=== PATIENT | male | born 1960 | race Caucasian/White ===

== ENCOUNTER 2019-07-12 12:04 | Emergency (ER) | payer SELFPAY ==
[2019-07-12 13:01] VITALS: BP 118/74
--- NOTE | 2019-07-12 13:26 | UC ---
Knee Pain HPI - HPI Summary HPI Summary: 58-year-old male presents with one-week history of right knee pain. States he woke up one week ago noting some pain to the anterior right knee. Approximately 2-3 days later he started noticing some redness and swelling over the kneecap. No known injury. 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 Denies fever, chills, joint pain, decreased range of motion, numbness, or tingling. - History of Current Complaint Chief Complaint: UCLowerExtremity Stated Complaint: KNEE INJURY Time Seen by Provider: 07/12/19 13:10 Hx Obtained From: Patient Pain Intensity: 7 - Allergies/Home Medications Allergies/Adverse Reactions: Allergies Allergy/AdvReac Type Severity Reaction Status Date / Time No Known Allergies Allergy Verified 07/12/19 13:01 PMH/Surg Hx/FS Hx/Imm Hx Previously Healthy: Yes - Denies significant PMH - Surgical History Surgical History: Yes Surgery Procedure, Year, and Place: appendectomy - Family History Known Family History: Positive: Non-Contributory - Social History Occupation: Employed Full-time Lives: Alone Alcohol Use: None 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 Negative: Decreased ROM Neurological: Positive: Negative Is Patient Immunocompromised?: No Physical Exam - Summary Physical Exam Summary: GENERAL APPEARANCE: Well developed, well nourished, alert and cooperative, and appears to be in no acute distress. CARDIAC: Normal S1 and S2. No S3, S4 or murmurs. Rhythm is regular. There is no peripheral edema, cyanosis or pallor. Extremities are warm and well perfused. Capillary refill is less than 2 seconds. Peripheral pulses intact. LUNGS: Clear to auscultation without rales, rhonchi, wheezing or diminished breath sounds. ABDOMEN: Positive bowel sounds. Soft, nondistended, nontender. No guarding or rebound. No masses or hepatosplenomegally. MUSKULOSKELETAL: Normal muscular development. Limping gait. EXTREMITIES: Mild tenderness with erythema and moderate edema over the right knee cap. No lesions noted. No joint pain. Full ROM. Circulation and sensation intact. SKIN: Skin normal color, texture and turgor. Triage Information Reviewed: Yes Vital Signs: Initial Vital Signs Temp 99.3 F 07/12/19 12:57 Pulse 64 07/12/19 12:57 Resp 18 07/12/19 12:57 BP 118/74 07/12/19 12:57 Pulse Ox 97 07/12/19 12:57 Vital Signs Reviewed: Yes Diagnostics - Radiology No standard instances Radiology Interpretation Completed By: Radiologist Summary of Radiographic Findings: Order Information: KNEE RIGHT 4+ VWS. Indication: RIGHT knee pain since Friday with progressive worsening and swelling. Comparison: None. Technique: RIGHT knee: AP, tunnel, lateral, sunrise views. Report: #. Negative for fracture or articular malalignment. #. Small joint effusion. Severe anterior soft tissue swelling. #. 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 IMPRESSION: #. Correlate for potential prepatellar bursitis or cellulitis. Knee Pain Course/Dx - Course Course Of Treatment: 58-year-old male presents with one-week history of right knee pain. States he woke up one week ago noting some pain to the anterior right knee. Approximately 2-3 days later he started noticing some redness and swelling over the kneecap. No known injury. 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 Denies fever, chills, joint pain, decreased range of motion, numbness, or tingling. Afebrile. Vital signs stable. Patient had mild tenderness with erythema and moderate edema over the right knee cap. No lesions noted. No joint pain. Full ROM. Circulation and sensation intact. Remainder of exam unremarkable. X-ray was negative for fracture or articular malalignment, small joint effusion with severe anterior soft tissue swelling consistent with prepatellar burstitis, and very mild osteoarthritis at the medial joint compartment and patellofemoral joint. Findings reviewed with patient. Recommending conservative treatment for a right prepatellar bursitis. He was given a prescription for naproxen 500 mg 1 tablet every 12 hours for the next 5-7 days then every 12 hours as needed. He is to follow-up with orthopedic surgery in one week if no improvement in symptoms. Anticipatory guidance and warning symptoms reviewed with the patient. Verbalizes understanding and agrees with plan of care. - Differential Dx/Diagnosis Differential Diagnosis/HQI/PQRI: Internal Derangement Of Knee, Infection, Sprain Provider Diagnosis: Prepatellar bursitis of right knee Discharge ED - Sign-Out/Discharge Documenting (check all that apply): Patient Departure All imaging exams completed and their final reports reviewed: Yes - Discharge Plan Condition: Stable Disposition: HOME Prescriptions: Naproxen [Naproxen 500 mg tab] 500 mg PO Q12HR #30 tablet Patient Education Materials: Knee Bursitis (ED) Referrals: No Primary Care Phys,NOPCP [Primary Care Provider] - Aurelio Norris MD [Medical Doctor] - Additional Instructions: The x-ray performed in the clinic today showed no evidence of a fracture. You have a condition called prepatellar bursitis. Rest the knee as much as possible. Try to avoid putting any pressure on the knee while having pain and/or swelling. In the future you should wear knee pads when working on you knees to help prevent future occurrences. Apply ice to the affected area for 15-20 minutes at least 4 times a day to help with the pain and swelling. Elevate the leg to help reduce swelling. Take naproxen 500 mg 1 tablet every 12 hours with food for the next 5-7 days then may take every 12 hours as needed for pain. Follow up with orthopedic surgery in 5-7 days if symptoms do not improve. Seek immediate medical attention if you have severe pain not managed with pain medication, you are unable to walk or bear any weight, develop numbness or tingling in the leg, foot, or toes, or have any worsening of symptoms. - Billing Disposition and Condition Condition: STABLE Disposition: Home - Attestation Statements Provider Attestation: I was available for consult. This patient was seen by the CAMILO. The patient was not presented to, seen by, or examined by me. -Jairo
== END 2019-07-12 14:12 | disposition home or self-care (01) ==
LOC: UCEAST 12:04
DX: M70.41 Prepatellar bursitis, right knee (principal); Z87.891 Personal history of nicotine dependence
CPT/HCPCS: 99202; G0463

== ENCOUNTER 2019-07-28 10:28 | Inpatient (IN) | payer MEDICAID ==
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
[2019-07-28] MEDS ORDERED: NS 0.9% 1000 ML** 1,000 ML IV ONE (10:39)
[2019-07-28] MEDS ORDERED: Piperacillin/Tazobac ADVAN(*) 3.375 GM in NS 0.9% 100 ML* 100 ML IVPB ONE (10:41)
[2019-07-28 11:02] LABS: ABS Basophils 0.1 10^3/ul (0-0.2); ABS Eosinophils 0.1 10^3/ul (0-0.6); ABS Lymphocytes 1.2 10^3/ul (1.0-4.8); ABS Monocytes 0.9 10^3/ul (0-0.8); ABS Neutrophils 5.6 10^3/ul (1.5-7.7); Eosinophil % 1.8 %; Hematocrit 41 % (42-52); Hemoglobin 14.3 g/dL (14.0-18.0); Lymphocyte % 15.4 %; Mean Corpuscular HGB Conc 35 g/dL (31-36); Mean Corpuscular Hemoglobin 32 pg (27-31); Mean Corpuscular Volume 94 fL (80-94); Mean Platelet Volume 6.9 fL (7.4-10.4); Platelet Count 549 10^3/uL (150-450); Red Blood Count 4.42 10^6 /uL (4.18-5.48); Red Cell Distribution Width 14 % (10-15)
[2019-07-28] MEDS ORDERED: Lidocaine 1% MPF ** 5 ML VIAL ONE (11:03)
[2019-07-28] MEDS ORDERED: Ondansetron INJ* 2 MG/ML VIAL ONE (11:09)
[2019-07-28] MEDS ORDERED: Morphine 4 MG/ML VIAL (1 ml) 4 MG/ML VIAL ONE (11:09)
[2019-07-28] MEDS ORDERED: Ondansetron INJ* 2 MG/ML VIAL IV ONE (11:11)
[2019-07-28] MEDS ORDERED: Morphine 4 MG/ML VIAL (1 ml) 4 MG/ML VIAL IV ONE (11:11)
[2019-07-28 11:35] LABS: C Reactive Protein 122.39 mg/L (<8.01); Uric Acid 3.4 mg/dL (4.4-7.6)
[2019-07-28 12:23] LABS: Erythrocyte Sed Rate 77 mm/Hr (0-19)
[2019-07-28 12:27] LABS: Albumin/Globulin Ratio 1.3 (1-3); BUN/Creatinine Ratio 25.4 (8-20); Calcium 8.9 mg/dL (8.6-10.3); EGFR African American 138.9 (>60); EGFR Non-African American 114.8 (>60); Globulin 3.1 g/dL (2-4); Potassium 4.4 mmol/L (3.5-5.0); Total Bilirubin 0.9 mg/dL (0.2-1.0); Total Protein 7.1 g/dL (6.4-8.9)
[2019-07-28] MEDS ORDERED: Vancomycin(*) 1,000 MG in NS 0.9% 250 ML* 250 ML IVPB ONE (12:45)
[2019-07-28] MEDS ORDERED: Vancomycin per Pharmacy* NOTE FOLLOW UP SCH (15:00)
--- NOTE | 2019-07-28 19:16 | CONS ---
CONSULTATION REPORT: DATE OF CONSULT: 07/28/19 LOCATION: Bed 422 at [facility]. 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 He has had increasing pain at the anterior aspect of his right knee for the last 3 weeks and was seen at [facility] 10 days ago for some swelling in the anterior right knee and was given a course of antibiotics. He feels that that has not helped and he came to the emergency room today with increasing redness, swelling /puffiness at the anterior aspect of his right knee. He had the knee bursa lanced by the emergency room doctor with copious amount of purulent material obtained. With erythema and apparently septic prepatellar bursa, he was admitted to the medical service with orthopedic consultation. Jaguar is 58 years of age. He is an ex-smoker. He claims to be in pretty good health with no history of diabetes. He has had no recent fevers, but has had had some chill feelings. No significant chest pain or difficulty breathing. No particular GI disturbance. No dizziness or lightheadedness. No depression or anxiety. PHYSICAL EXAM: His examination shows him to be a healthy-appearing male who is alert, oriented, and in no acute distress. He is a good historian as far as the right knee problem. The right knee itself is red and swollen in the prepatellar area. He has circumferential redness at the patella, but not around the side and back of the knee and he is able to flex and extend the knee well, particularly since the bursa has been lanced. There is a 3 cm jagged wound at the inferior portion of the patellar bursa and some scant purulent drainage there. He has a warm sensate foot with intact pulses and good range of motion. IMPRESSION: The patient with septic prepatellar bursitis related to his work on the knee. Typically, there is a small foreign body or just recurrent trauma to the bursa precipitating this type of problem. PLAN: Plan for him would be admission to the medical service with orthopedic consultation. He will be n.p.o. after midnight and plan for tomorrow is a formal washout and debridement of the prepatellar bursa of right leg. [id number]/[facility] #: [id number] [facility] HOSPITALGerardo
[2019-07-28] MEDS: Vancomycin(*) 1,250 MG in NS 0.9% 250 ML* 250 ML IVPB SCH (20:53)
--- NOTE | 2019-07-28 22:57 | HP ---
HISTORY AND PHYSICAL: DATE OF ADMISSION: 07/28/19 PROVIDER: Grabiel Martino NP PRIMARY CARE PROVIDER: None. ATTENDING PHYSICIAN WHILE IN THE HOSPITAL: Dr. Breann Correa * (dictated by Grabiel Martino NP). CHIEF COMPLAINT: Right knee pain. HISTORY OF PRESENT ILLNESS: Mr. Ahumada is a 58-year-old male with no significant past medical history, who presented to the emergency room with complaints of right knee swelling and redness, very painful x3 weeks. The patient reports that he woke up on 07/05/19 with soreness in his right knee. He reports that it continued to bother him and then on 07/12, he was seen at [facility], an acute care hospital, at that time he had x- rays and was diagnosed with bursitis of the right knee. He was prescribed naproxen for the knee pain. He reports he took naproxen for approximately 15 days with no improvement. He reports that over the past 10 days he has had an increased redness, swelling, and increased pain in the right knee. Due to this, the patient presented to the emergency room. He does report that he noticed some drainage coming from the right knee that started last night. He does report that was very painful to walk on his knee, bend his knee or move his leg. Due to these symptoms, the patient presented to the emergency room for further evaluation. While in the emergency room, the patient had routine lab work drawn. He found to have an ESR of 77 and CRP of 122.39. The patient did have incision and drainage of the knee in the emergency room, a culture was sent which was negative for MRSA, but positive for MSSA. Due to the pain and swelling in his right knee, Hospital Medicine was asked to see and evaluate for admission. PAST MEDICAL HISTORY: None. PAST SURGICAL HISTORY: Appendectomy. HOME MEDICATIONS: None. ALLERGIES: None. FAMILY HISTORY: No reported history of coronary artery disease, diabetes. Mother with breast cancer. SOCIAL HISTORY: The patient reports he quit smoking approximately 20 years ago. Denies any alcohol or illicit drug use. 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 He is . Surrogate decision maker is none. He is a full code. REVIEW OF SYSTEMS: He denies fever, chills, unintended weight loss. Denies any chest pain, edema, hemoptysis. Denies any shortness of breath. Denies any nausea, vomiting, diarrhea, abdominal pain, hematuria, dysuria, focal weakness, sensory loss. Denies any dysphagia. He does complain of pain to the right knee with redness, swelling, and small amount of bloody drainage. Denies any psychosis or anxiety. PHYSICAL EXAMINATION GENERAL: At this time, Mr. Ahumada is alert and oriented, resting on the stretcher in the emergency room. He is in no acute distress. VITAL SIGNS: Blood pressure 125/70, heart rate 68, respirations are 18, O2 saturations 97%, temperature was 98.1. HEENT: Head is atraumatic, normocephalic. Eyes: EOMs are intact. Sclerae anicteric and not pale. Oral mucosa appears to be moist. NECK: Supple. LUNGS: Clear to auscultation bilaterally. No wheezes, rales, or rhonchi. CARDIAC: S1, S2. Regular rate and rhythm. No murmurs, rubs or gallops. ABDOMEN: Soft and nontender. Bowel sounds are present x4. EXTREMITIES: He does have redness and swelling noted to his right knee with bloody drainage. The knee is warm to touch with surrounding erythema, noted with erythema streaking up his right thigh and erythema noted to his right lower leg. Pedal pulses are +2 bilaterally. SKIN: He does have drainage noted from the right knee with moderate amount of swelling and severe pain to touch with surrounding erythema. NEUROLOGIC: He is awake, alert, and oriented x3. His speech is clear. Thought process is intact. There are no gross focal deficits. DIAGNOSTIC STUDIES/LAB DATA: WBCs were 8.0, RBCs 4.42, hemoglobin 14.3, hematocrit 41, platelet count 549. ESR is 77. Sodium 137, potassium 4.4, chloride 100, carbon dioxide was 32, anion gap 5, BUN 18, creatinine 0.71, glucose was 108, lactic acid 0.7, uric acid 3.4, calcium 8.9. ASTs were 10, ALTs were 13, alkaline phosphatase 75. C-reactive protein was 122.39. He had a venous Doppler, no evidence of deep vein thrombosis. Blood cultures are currently pending. Wound culture sensitivity is pending as well. ASSESSMENT AND PLAN: Mr. Ahumada is a 58-year-old male with no significant past medical history, who presented to the emergency room with complaints of right knee pain, swelling, and redness. He will be admitted for: 1. Cellulitis, possible infected bursitis of the right knee. I will consult Orthopedics, Dr. Mendosa, who will see the patient in consultation. He will be made n.p.o. after midnight as he would likely need to go to the OR for washout. I will continue him on vancomycin, I will start him on normal saline at 75 cc an hour after midnight. Further management of the right knee per Orthopedics recommendations. 2. FEN: He will be n.p.o. after midnight. Prior to the night, he can have regular diet. 3. Code status is full code. 4. DVT prophylaxis: I will place him on SCDs for now as the patient will have pending surgery tomorrow. 5. Disposition: He will be placed inpatient on the medical floor. TIME SPENT: Time spent on this admission was 60 minutes, greater than half that time was spent at the bedside reviewing events leading thus far to his hospitalization, performing physical exam, and reviewing my plan of care. I have discussed this with my attending, Dr. Breann Correa; she is in agreement with my plan. GRABIEL MARTINO, LITERACY CONSULTANT [id number]/[facility] #: [id number] STACY
[2019-07-29] MEDS: NS 0.9% 1000 ML** 1,000 ML IV SCH ×2 (04:49→22:37)
[2019-07-29] MEDS: Vancomycin(*) 1,250 MG in NS 0.9% 250 ML* 250 ML IVPB SCH (04:49)
[2019-07-29 06:28] LABS: ABS Eosinophils 0.3 10^3/ul (0-0.6); ABS Lymphocytes 1.5 10^3/ul (1.0-4.8); ABS Monocytes 0.7 10^3/ul (0-0.8); ABS Neutrophils 2.8 10^3/ul (1.5-7.7); Eosinophil % 5.5 %; Hematocrit 37 % (42-52); Hemoglobin 12.7 g/dL (14.0-18.0); Lymphocyte % 27.5 %; Mean Corpuscular HGB Conc 34 g/dL (31-36); Mean Corpuscular Hemoglobin 32 pg (27-31); Mean Corpuscular Volume 94 fL (80-94); Mean Platelet Volume 7.2 fL (7.4-10.4); Platelet Count 477 10^3/uL (150-450); Red Blood Count 3.91 10^6 /uL (4.18-5.48); Red Cell Distribution Width 14 % (10-15); White Blood Count 5.3 10^3/uL (3.5-10.8)
[2019-07-29 06:43] LABS: Calcium 8.1 mg/dL (8.6-10.3); Potassium 3.6 mmol/L (3.5-5.0)
[2019-07-29 06:48] LABS: BUN/Creatinine Ratio 25.8 (8-20); EGFR African American 151.1 (>60); EGFR Non-African American 124.9 (>60)
--- NOTE | 2019-07-29 08:05 | PN ---
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 I&D done on ED showed purulent drainage; MSSA positive. On cefazolin(day 2);was on vanco before; wash out today No acute overnight events VS stable He doesnot have any pain. No fever. He is concerned about his wound on right knee Last BM yesterday Objective Active Medications: Acetaminophen (Tylenol Tab*) 650 mg PO Q4H PRN PRN Reason: MILD PAIN or TEMP > 100.4 Vancomycin HCl 1,250 mg/ (Sodium Chloride) 250 mls @ 166.667 mls/hr IVPB Q8H [facility] Last Admin: 07/29/19 04:49 Dose: 166.667 mls/hr Sodium Chloride (Ns 0.9% 1000 Ml) 1,000 mls @ 75 mls/hr IV PER RATE [facility] Last Admin: 07/29/19 04:49 Dose: 75 mls/hr Pharmacy Consult (Vancomycin Per Pharmacy*) 1 note FOLLOW UP .VANC PER PHARMACY ELADIO; Protocol Pharmacy Profile Note (Vancomycin Trough Check) 1 note FOLLOW UP 1230 ONE Stop: 07/29/19 12:31 Vital Signs - 8 hr 07/29/19 07/29/19 03:15 07:15 Temperature 97.6 F 97.6 F Pulse Rate 81 69 Respiratory 18 18 Rate Blood Pressure 121/69 114/67 (mmHg) O2 Sat by Pulse 98 96 Oximetry Oxygen Devices in Use Now: None Exam: Patient is lying on a bed with no acute distress. HEENT: Normocephalic and atraumati Lungs: Clear with no added sounds Heart: S1/S2 heard with no added murmur ABdomen: soft, nondistended and nontender. Normal BS heard Extremitites: Dressing on right knee; soaked with blood. Surrounding area red and indurated. Mild tenderness present. PUs seen on right knee with no active drainage. Distal pulse intact. 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 I&D done on ED showed purulent drainage; MSSA positive. Found to have Septic prepatellar bursitis. On cefazolin(day 2); wash out today - Patient Problems (1) Septic prepatellar bursitis of right knee Current Visit: Yes Status: Acute Code(s): M71.161 - OTHER INFECTIVE BURSITIS , RIGHT KNEE SNOMED Code(s): 34780197 Comment: S/P I and D in ED wound growing MSSA. 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 Was on vancomycin before; no changed to cefazoli(day 2) On iv fluids Plan is to wash out today; ortho following (2) DVT prophylaxis Current Visit: Yes Status: Acute Code(s): Z29.9 - ENCOUNTER FOR PROPHYLACTIC MEASURES, UNSPECIFIED SNOMED Code(s): 775247746 Comment: On SCD (3) Full code status Current Visit: Yes Status: Acute Code(s): Z78.9 - OTHER SPECIFIED HEALTH STATUS SNOMED Code(s): 366735515 Status and Disposition: Medicine inpatient; ortho following No PCP Doesnot have insurance. Lives alone Attending: Beba Castaneda Attestation Documenting Resident: Lauri Stewart Supervising Physician: Beba Castaneda Attending/Supervising Physician Comment: Agree w resident note. Attending addendum 58M no sig PMH presents with subacute prepatellar bursitis, now c/b infection s/ p ID on 07/28, needing washout. #R knee: MSSA on micro, switch to cefazolin, after washout work with PT and choose likely keflex #Mildly elevated glu: Check A1C given no PC #DVT: SCDs, start SQH after #Code Full #Dispo: Possibly home 07/30 if can ambulate, will need work note and primary care Attestation: This service has been performed in part by a resident under the direction of a teaching physician.I, Beba Castaneda, performed the service, or was physically present during the critical, or mosher portions of the service, furnished by the resident. I participated in the management of the patient.
[2019-07-29] MEDS: ceFAZolin 1 GM ADVAN(*) 1 GM in NS 0.9% 50 ML* 50 ML IVPB SCH ×2 (11:57→18:54)
[2019-07-29 12:28] LABS: Urine Appearance Cloudy; Urine Bilirubin Negative (Negative); Urine Blood Negative (Negative); Urine Color Yellow; Urine Glucose Negative (Negative); Urine Ketones Negative (Negative); Urine Nitrite Negative (Negative); Urine Protein Negative (Negative); Urine Specific Gravity 1.023 (1.010-1.030); Urine Urobilinogen Positive (Negative)
[2019-07-29] MEDS ORDERED: Vancomycin Trough Check NOTE FOLLOW UP ONE (12:30)
--- NOTE | 2019-07-29 14:04 | HOSP.PREOP ---
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 Found to have Infected Prepatellar Bursitis. Cardiac: Patient does not complain Chest and shortness in exertion and on rest. He does not have history of claudication or any heart disease in past. He denies history of Diabetes and his creatinine is normal. His ECG shows <1mm St elevation; more consistent with J point elevation. Pulmonary: He does not have history of COPD and Asthma. He does not smoke; quit smoking 20 years ago. NO known history of YURY and recurrent lung infection. There is no immediate risk factor for pulmonary complication; although unpredicatable event might happen. Review of System: Except his current problem, he does not have any complaint. He does not have hypertension. No burning micturition, abdominal pain, nausea, vomiting, cough, lightheadedness or syncope. 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 RCRI: He falls on class I which carries 3.9% risk for major adverse cardiac events. All the risk and benefits was discussed with patient and he seems to understands well. Review of Systems - Measurements Intake and Output: Intake and Output Last 24 Hours 07/27/19 07/28/19 07/29/19 07/30/19 06:59 06:59 06:59 06:59 Intake Total 2835 Balance 2835 Weight 99.79 kg Intake: IV Fluids 1635 NS 20 Vanco 265 Oral 1200 Other: # Voids 0 - Review of Systems General Comments: See HPI Objective Active Medications: Acetaminophen (Tylenol Tab*) 650 mg PO Q4H PRN PRN Reason: MILD PAIN or TEMP > 100.4 Sodium Chloride (Ns 0.9% 1000 Ml) 1,000 mls @ 75 mls/hr IV PER RATE [facility] Last Admin: 07/29/19 04:49 Dose: 75 mls/hr Cefazolin Sodium 1 gm/ Sodium (Chloride) 50 mls @ 200 mls/hr IVPB Q8H [facility] Last Admin: 07/29/19 11:57 Dose: 200 mls/hr Vital Signs - 8 hr 07/29/19 07/29/19 07/29/19 07:15 08:00 10:57 Temperature 97.6 F 98.1 F Pulse Rate 69 64 Respiratory 18 18 18 Rate Blood Pressure 114/67 127/71 (mmHg) O2 Sat by Pulse 96 98 Oximetry Oxygen Devices in Use Now: None Appearance: See note from this morning Result Diagrams: 07/29/19 05:47 07/29/19 05:47 Microbiology and Other Data: Microbiology 07/28/19 12:02 Aerobic Blood Culture - Preliminary Blood Venous No Growth Day 1 Anaerobic Blood Culture - Preliminary No Growth Day 1 07/28/19 10:50 Aerobic Blood Culture - Preliminary Blood Venous No Growth Day 1 Anaerobic Blood Culture - Preliminary No Growth Day 1 07/28/19 11:15 Skin and Soft Tissue MRSA/MSSA (PCR - Final Knee Right Mrsa Negative S.aureus Positive Gram Stain - Final Assessment/Plan - Billing Assessment: 58 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 Found to have infected prepatellar bursitis. Going for wash out today. Patient is cleared for wash out and we do not recommend any furthur testing at this point. Attending: Beba Castaneda
[2019-07-29] MEDS ORDERED: oxyCODONE TAB* 5 MG TAB PO PRN (16:05)
[2019-07-29] MEDS ORDERED: fentaNYL* 50 MCG/ML 2 ML VIAL (100 MCG VIAL) IV PRN (16:05)
[2019-07-29] MEDS ORDERED: Naloxone* 0.4 MG/ML 1 ML VIAL IV PRN (16:05)
[2019-07-29] MEDS ORDERED: Acetaminophen TAB* 325 MG PO PRN (16:05)
[2019-07-29] MEDS ORDERED: DiMENhydriNATE IV* 50 MG/ML VIAL IV PUSH PRN (16:05)
[2019-07-29] MEDS ORDERED: Propofol* 500 MG/50 ML BTL ONE (16:09)
[2019-07-29] MEDS ORDERED: Midazolam* 1 MG/ML 2 ML VIAL (2 MG) ONE (16:09)
[2019-07-29] MEDS ORDERED: Lidocaine 2% PF * 5 ML VIAL ONE (16:09)
[2019-07-29] MEDS ORDERED: Bupivacaine 0.5%* 50 ML MDV VIAL ONE ×2 (16:26→16:48)
[2019-07-29] MEDS ORDERED: Ibuprofen TAB* 600 MG PO PRN (17:38)
--- NOTE | 2019-07-29 17:44 | OP ---
Operative Report - Blank - Operative Report Date of Operation: 07/29/19 Note: PATIENT: Jaguar Ahumada DATE OF : 1960 DATE OF SURGERY: 07/29/2019 SURGEON: Rohit Bergman MD [employer] MACHINE OPERATOR: ZANE Kunz, whos assistance was necessary for positioning, retraction, help with instrumentation, and closure. ANESTHESIOLOGIST: Dr. Goncalves PREOPERATIVE DIAGNOSIS: Right knee septic prepatellar bursitis abscess POSTOPERATIVE DIAGNOSIS: Right knee septic prepatellar bursitis abscess OPERATION: 1. Right knee incision and drainage of prepatellar bursa abscess 2. Right knee prepatellar bursa excision ANESTHESIA: MAC IMPLANTS: none TOURNIQUET TIME: Less than 1 hour with a well-padded thigh tourniquet at 250mmHg SPECIMENS: Culture swabs to microbiology ESTIMATED BLOOD LOSS: minimal COMPLICATIONS: none STATUS: Stable from the operating room to the recovery room. INDICATIONS FOR PROCEDURE: Jaguar has a draining septic prepatellar bursitis abscess. Both operative and non-operative treatment alternatives were reviewed. Further, the nature and risks of surgery were reviewed in careful detail. Our discussions regarding the risks of surgery included, but were not limited to, persistent or worsening infection, wound problems, nerve injury, neuroma, RSD, persistent symptoms, blood clot, need for further surgery, failure of the surgery, and even the remote chance of catastrophic complication. DESCRIPTION OF PROCEDURE: The patient was seen in the preoperative holding unit and informed written consent was obtained. The appropriate extremity was marked. The patient was then brought to the operating room and carefully positioned on the operating room table. Anesthesia was induced. All bony prominences were padded with great care. A well-padded thigh tourniquet was placed. A chlorhexidine based pre- scrub was performed followed by a betadine prep and drape in standard sterile fashion. A surgical safety pause was then conducted in which we confirmed the appropriate patient, extremity, planned procedure, availability of equipment, indication and administration of prophylactic antibiotics, and DVT prophylaxis in the form of a compression boot on the non-surgical extremity. I began with an Esmarch exsanguination of the limb, avoiding the knee, and inflated the tourniquet. I then made a longitudinal incision overlying the anterior aspect of the knee. I ellipsed out the draining sinus. I carried dissection sharply, deepened to the prepatellar bursa. Diomedes pus was encountered. Culture swabs were taken and sent to microbiology. I sharply debrided away clearly infected tissue with a 15 blade scalpel. The wound and bursa was then copiously irrigated with sterile saline while curetting out the tissue. I then examined the prepatellar bursa and there was no continuity with the knee joint appreciated. I then sharply excised the prepatellar bursal tissue with a 15 blade scalpel. I then copiously irrigated the wound again with sterile saline. I did not appreciate any obvious infected or necrotic tissue, so the wound was then closed in a layered fashion utilizing 0 PDS and 2- 0 Prolene. A sterile dressing was then applied, followed by a knee immobilizer. The patient was then awakened from anesthesia and transferred to the recovery room in stable condition. There were no complications. All needle and sponge counts were correct at the end of the case. ATTESTATION: I attest I was present and scrubbed and performed the critical portions of the procedure myself. POSTOPERATIVE PLAN: Antibiotics per the infectious disease service. Wound check in 2 days.
[2019-07-29] MEDS: Acetaminophen TAB* 325 MG PO PRN ×2 (18:54→22:45)
[2019-07-29] MEDS: oxyCODONE TAB* 5 MG TAB PO PRN (22:51)
[2019-07-30] MEDS: ceFAZolin 1 GM ADVAN(*) 1 GM in NS 0.9% 50 ML* 50 ML IVPB SCH ×2 (01:59→16:04)
[2019-07-30 06:21] LABS: ABS Eosinophils 0.2 10^3/ul (0-0.6); ABS Lymphocytes 1.4 10^3/ul (1.0-4.8); ABS Monocytes 0.5 10^3/ul (0-0.8); ABS Neutrophils 3.2 10^3/ul (1.5-7.7); Eosinophil % 4.5 %; Hematocrit 36 % (42-52); Lymphocyte % 26.5 %; Mean Corpuscular HGB Conc 34 g/dL (31-36); Mean Corpuscular Hemoglobin 32 pg (27-31); Mean Corpuscular Volume 94 fL (80-94); Mean Platelet Volume 7.1 fL (7.4-10.4); Nucleated Red Blood Cells % 0.1; Platelet Count 473 10^3/uL (150-450); Red Blood Count 3.77 10^6 /uL (4.18-5.48); Red Cell Distribution Width 14 % (10-15); White Blood Count 5.4 10^3/uL (3.5-10.8)
--- NOTE | 2019-07-30 06:36 | PN ---
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 I&D done on ED showed purulent drainage; MSSA positive. On cefazolin(day 3);was on vanco before; s/p I&D(on 07/29) NO acute overnight events Vitals stable Complains of pain on anterior aspect of right knee. Can move his toes and ankle. Objective Active Medications: Acetaminophen (Tylenol Tab*) 650 mg PO Q4H PRN PRN Reason: MILD PAIN or TEMP > 100.4 Last Admin: 07/29/19 22:45 Dose: 650 mg Enoxaparin Sodium (Lovenox(*)) 40 mg SUBCUT DAILY [facility] Sodium Chloride (Ns 0.9% 1000 Ml) 1,000 mls @ 75 mls/hr IV PER RATE [facility] Last Admin: 07/29/19 22:37 Dose: 75 mls/hr Cefazolin Sodium 1 gm/ Sodium (Chloride) 50 mls @ 200 mls/hr IVPB Q8H [facility] Last Admin: 07/30/19 01:59 Dose: 200 mls/hr Ibuprofen (Motrin Tab*) 600 mg PO Q6H PRN PRN Reason: PAIN - MILD Oxycodone HCl (Roxycodone Tab*) 5 mg PO Q4H PRN PRN Reason: PAIN - MODERATE Last Admin: 07/29/19 22:51 Dose: 5 mg Vital Signs - 8 hr 07/29/19 07/29/19 07/29/19 22:40 22:51 23:02 Temperature 97.8 F Pulse Rate 67 Respiratory 18 17 Rate Blood Pressure 147/82 (mmHg) O2 Sat by Pulse 97 97 Oximetry 07/30/19 07/30/19 07/30/19 00:30 01:38 03:34 Temperature 97.9 F 98.1 F Pulse Rate 67 63 Respiratory 16 17 18 Rate Blood Pressure 129/76 129/73 (mmHg) O2 Sat by Pulse 96 97 Oximetry Oxygen Devices in Use Now: None Exam: Patient is lying on a bed with no acute distress. HEENT: Normocephalic and atraumati Lungs: Clear with no added sounds Heart: S1/S2 heard with no added murmur ABdomen: soft, nondistended and nontender. Normal BS heard Extremitites: Dressing on right knee with no soaking. Swelling on right ankle. Normal ROM in toes and ankle. Distal pulse intact. 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 Found to have infected prepatellar bursitis with abscess. s/p I&D and prepatellar bursa excision(07/29). oN cefazolin(day 3) . - Patient Problems (1) Septic prepatellar bursitis of right knee Current Visit: Yes Status: Acute Code(s): M71.161 - OTHER INFECTIVE BURSITIS , RIGHT KNEE SNOMED Code(s): 93162680 Comment: S/P I and D and prepatellar bursa excision in OR( on 07/29) wound growing MSSA. 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 (4) Full code status Current Visit: Yes Status: Acute Code(s): Z78.9 - OTHER SPECIFIED HEALTH STATUS SNOMED Code(s): 580290373 Status and Disposition: Medicine inpatient; ortho following No PCP Doesnot have insurance. Lives alone Attending: Beba Castaneda Attestation Documenting Resident: Lauri Stewart Supervising Physician: Beba Castaneda Attending/Supervising Physician Comment: Agree with resident note. 58M presented with prepatellar bursitis, now sp washout, doing remarkably well, may be able to go in the the next 24 hours pending on performance with PT Attestation: This service has been performed in part by a resident under the direction of a teaching physician.I, Beba Castaneda, performed the service, or was physically present during the critical, or mosher portions of the service, furnished by the resident. I participated in the management of the patient.
[2019-07-30 06:37] LABS: BUN/Creatinine Ratio 21.4 (8-20); Calcium 8.1 mg/dL (8.6-10.3); EGFR African American 141.2 (>60); EGFR Non-African American 116.7 (>60)
[2019-07-30] MEDS: Enoxaparin(*) 40 MG/0.4 ML SYR SUBCUT SCH (09:32)
[2019-07-30] MEDS: NS 0.9% 1000 ML** 1,000 ML IV SCH (09:32)
[2019-07-30] MEDS: oxyCODONE TAB* 5 MG TAB PO PRN (09:33)
--- NOTE | 2019-07-30 15:00 | PN ---
Progress Note - Progress Note Date of Service: 07/30/19 SOAP: Subjective: [Pt seen sitting in chair. States he is doing well. Mild pain in kneecap. He denies any chest pain, SOB. Nausea, vomiting, fevers, chill or night sweats. ] Objective: [General: Pt is alert and oriented x3 MSK, RLE: Dressing is c/d/i. +dp/pf. There is a knee immobilize in place. Sensation intact to light touch distally. NVI. calf is soft and non tender. ] Vital Signs Temp 98.1 F 07/30/19 07:15 Pulse 71 07/30/19 07:15 Resp 16 07/30/19 09:33 BP 135/94 07/30/19 07:15 Pulse Ox 97 07/30/19 08:00 Intake & Output 07/29/19 07/30/19 07/30/19 18:59 06:59 18:59 Intake Total 1497 1921 1140 Balance 1497 1921 1140 Weight 218 lb Intake: IV Fluids 1176 1501 LR 500 NS 676 1501 IVPB 321 ABX - CEFAZOLIN 56 Vanco 265 Oral 0 420 1140 Other: Estimated Void Medium # Voids 2 3 Assessment: [1. Right knee incision and drainage of prepatellar bursa abscess 2. Right knee prepatellar bursa excision] Plan: [ 1. Continue with abx 2. Will preform wound check tomorrow with dressing change 3. Continue with PT/OT. ]
[2019-07-31] MEDS: ceFAZolin 1 GM ADVAN(*) 1 GM in NS 0.9% 50 ML* 50 ML IVPB SCH ×2 (00:37→07:58)
--- NOTE | 2019-07-31 06:48 | PN ---
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 I&D done on ED showed purulent drainage;Found to have prepatellar abscess; MSSA positive. On cefazolin(day 4); s/p I&D(on ) No acute overnight events Vitals stable Patient complains of discomfort on his leg because of immobilizer. No pain, chills and sweats. Objective Active Medications: Acetaminophen (Tylenol Tab*) 650 mg PO Q4H PRN PRN Reason: MILD PAIN or TEMP > 100.4 Last Admin: 07/29/19 22:45 Dose: 650 mg Enoxaparin Sodium (Lovenox(*)) 40 mg SUBCUT DAILY [facility] Last Admin: 07/30/19 09:32 Dose: 40 mg Cefazolin Sodium 1 gm/ Sodium (Chloride) 50 mls @ 200 mls/hr IVPB 0000,0800, 1600 [facility] Last Admin: 07/31/19 00:37 Dose: 200 mls/hr Ibuprofen (Motrin Tab*) 600 mg PO Q6H PRN PRN Reason: PAIN - MILD Oxycodone HCl (Roxycodone Tab*) 5 mg PO Q4H PRN PRN Reason: PAIN - MODERATE Last Admin: 07/30/19 09:33 Dose: 5 mg Vital Signs - 8 hr 07/31/19 07/31/19 00:00 03:44 Temperature 97.7 F 97.7 F Pulse Rate 67 64 Respiratory 18 18 Rate Blood Pressure 132/83 118/55 (mmHg) O2 Sat by Pulse 97 96 Oximetry Oxygen Devices in Use Now: None Exam: Patient is lying on a bed with no acute distress. HEENT: Normocephalic and atraumati Lungs: Clear with no added sounds Heart: S1/S2 heard with no added murmur ABdomen: soft, nondistended and nontender. Normal BS heard Extremitites: Dressing on right knee with no soaking. Swelling on right ankle. Normal ROM in toes and ankle. Distal pulse intact. 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 Found to have infected prepatellar bursitis with abscess. s/p I&D and prepatellar bursa excision(07/29). oN cefazolin(day 4) . - Patient Problems (1) Septic prepatellar bursitis of right knee Current Visit: Yes Status: Acute Code(s): M71.161 - OTHER INFECTIVE BURSITIS , RIGHT KNEE SNOMED Code(s): 40440748 Comment: S/P I and D and prepatellar bursa excision in OR( on 07/29) wound growing MSSA. 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 On cefazolin(day 4) Ortho following probabale dc today with oral abx for 5 more days. (2) Prediabetes Current Visit: Yes Status: Acute Code(s): R73.03 - PREDIABETES SNOMED Code (s): 335851067 Comment: Hba1C 5.7 certified personal finance counselor him on lifestyle modification (3) DVT prophylaxis Current Visit: Yes Status: Acute Code(s): Z29.9 - ENCOUNTER FOR PROPHYLACTIC MEASURES, UNSPECIFIED SNOMED Code(s): 583915680 Comment: On lovenox. (4) Full code status Current Visit: Yes Status: Acute Code(s): Z78.9 - OTHER SPECIFIED HEALTH STATUS SNOMED Code(s): 727622891 Status and Disposition: Medicine inpatient; ortho following No PCP Doesnot have insurance. Lives alone probable dc. Attending: Beba Castaneda Attestation Documenting Resident: Lauri Stewart Supervising Physician: Beba Castaneda Attestation: This service has been performed in part by a resident under the direction of a teaching physician.I, Beba Castaneda, performed the service, or was physically present during the critical, or mosher portions of the service, furnished by the resident. I participated in the management of the patient.
[2019-07-31] MEDS: Enoxaparin(*) 40 MG/0.4 ML SYR SUBCUT SCH (07:59)
[2019-07-31 08:11] VITALS: BP 136/76
--- NOTE | 2019-07-31 10:22 | DS ---
CC: [facility] DISCHARGE SUMMARY: DATE OF ADMISSION: 07/28/19 DATE OF DISCHARGE: 07/31/19 PRIMARY CARE PROVIDER: [facility], as the patient had no PCP prior to this admission. DISPOSITION AT THE TIME OF DISCHARGE: Stable, discharged to home. PRIMARY DIAGNOSIS: Septic prepatellar bursitis on the right knee. SECONDARY DIAGNOSIS: Prediabetes. MEDICATIONS AT THE TIME OF DISCHARGE: 1. Ibuprofen 600 mg p.o. q.6 hours p.r.n. for pain. 2. Acetaminophen 650 mg p.o. q.4 hours p.r.n. for pain. 3. CBD extract as per the patient's prior usage. 4. Bactrim double strength 1 tab b.i.d. for an additional 5 days status post discharge. Medication changes include the addition of, 1. Ibuprofen. 2. Tylenol. 3. Bactrim. 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 The patient has been seen in Urgent Care about 2-1/2 weeks prior where he was noted to have a prepatellar bursitis and was even doing a significant amount of work in a crawl space where he had been on his knees with repetitive trauma over the course of several days. He was initially prescribed nonsteroidal anti- inflammatory medications, but after no improvement, he returned and was placed on antibiotics. He continued to take antibiotics, although his knee continued to remain hot, swollen, and tender. He re-presented and he was noted to have skin and soft tissue infection that exceeded outside of the prepatellar bursitis and was referred to the emergency room for possible I and D in the emergency room, and incision and drainage was done 07/28/19 by ER staff where serena pus was expressed and Ortho was consulted who felt that the patient needed ultimately a washout and IV antibiotics along with admission. Hospitalist team was asked to admit the patient. HOSPITAL COURSE: 1. Prepatellar septic bursitis. The patient did ultimately go for a washout with incision and drainage further done in the operating room by the orthopedics team on 07/29/19 where they noted serena pus in the bursa only with no extension to the joint space. Also they noted overlying skin and soft tissue infection consistent with cellulitis, but no other concerns or myositis or any extension beyond the bursa. Intraoperative wound cultures ended up showing MSSA with MRSA swab negative and no other polymicrobial component. The patient was initially managed on broad- spectrum antibiotics, but then narrowed to cefazolin IV which he took for a full 48 hours, and on 07/31/19, the patient was discharged on Bactrim for a total of 9 days. This can be continued for up to 14 days if wound is not improving, although he had significant benefit status post washout and was weightbearing postop day 0 while using an immobilizer brace. 2. Prediabetes. In the context of being in the hospital, the patient did have A1c checked to help prognose for wound healing, and because the patient had not seen a primary care provider in several years, routine labs were checked. His A1c was found at 7.7. He was counseled on diagnosis of pre-diabetes and the need to follow up with primary care, to ensure healthy lifestyle which he agrees. On the day of discharge, his vital signs were stable. His physical exam was done, which was noted in the daily progress note. The patient is ambulating with an immobilizer brace on and weightbearing, voiding freely, and tolerating diet. 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 A referral to the orthopedic clinic was made. LABS AND STUDIES DONE DURING THIS HOSPITALIZATION: Labs on 07/30/19, notable for white blood cell count of 5.4, hemoglobin of 12, hematocrit of 36, and platelets of 473. He did not have a white count on admission, and ESR was 77 on admission. BMP on 07/30/19 was unremarkable. A1c was 5.7. Uric acid was 3.4. Urinalysis was unremarkable. LFTs were unremarkable. Imaging done included a venous Doppler study on 07/28/19, which was negative for DVT, and an EKG which showed normal sinus rhythm with no signs of ischemia. CONSULTANTS DURING THIS HOSPITALIZATION: [facility] who completed an incision and drainage and washout of the right-sided prepatellar bursa on , seen by Dr. Rohit Bergman. ITEMS TO FOLLOW UP ON STATUS POST DISCHARGE: 1. Prepatellar bursitis, ensure the patient's wound is healing well and needs no further antibiotics. He is discharged with a total of 5 days more and instructions to follow up with our [facility]. 2. Prediabetes. The patient needs routine primary care. Counseled on lifestyle. 3. Mild anemia. This is noted postoperatively. His hemoglobin on presentation was 14.3, and by day of discharge was 12. This is most likely a reflection of intraoperative procedure along with IV fluids. Repeat CBC can be checked as an outpatient. Further more, he has thrombocytosis. Platelets elevated at 473. This is presumed to be secondary to infection and can be rechecked at a future date to ensure there is no primary dysfunction with the platelets outlined. TIME SPENT: Thirty minutes, over half of that was spent directly at the bedside of the patient providing direct patient care, plan of care for discharge to home. Work precautions, antibiotics, and followup plan were discussed with the patient. He has no further questions. This discharge summary is a distillation of the events that happened over the course of 3 days. If there are any questions about the care of this patient during this hospitalization, please do not hesitate to reach out and contact me directly; my cell phone is [phone]. [id number]/[facility] #: [id number] STACY
--- NOTE | 2019-07-31 13:07 | PN ---
Progress Note - Progress Note Date of Service: 07/31/19 Note: Patient's dressing was changed today. Wound is well approximated with scant serosanguinous drainage. Sutures intact. Mild erythema without streaking. +DF/ PF with intact sensation and 2+ DP pulse. Patient encouraged to straighten knee and flex to 40 degrees, and perform ankle flexion to avoid stiffness. He should use the knee immobilizer when weight bearing but keep dressing in place until follow up. He should elevate and can ice for comfort. He was given our office number and instructed to call Friday morning for an appointment to be seen Friday by Dr. Bergman. His questions were answered and he is ready for discharge from an orthopedic perspective.
== END 2019-07-31 14:20 | disposition home or self-care (01) | DRG 317 ==
LOC: ED 10:28 → MED 14:25
PROVIDERS: ADMIT Internal Medicine; ATTEND Internal Medicine
PROC: 0J9N0ZZ Drainage of Right Lower Leg Subcutaneous Tissue and Fascia, Open Approach (ICD-10-PCS; 2019-07-28)
PROC: 0MBN0ZZ Excision of Right Knee Bursa and Ligament, Open Approach (ICD-10-PCS; principal; 2019-07-29 18:00)
DX: M71.161 Other infective bursitis, right knee (principal); L03.115 Cellulitis of right lower limb; L02.415 Cutaneous abscess of right lower limb; B95.61 Methicillin susceptible Staphylococcus aureus infection as the cause of diseases classified elsewhere; R73.03 Prediabetes; D64.9 Anemia, unspecified; D47.3 Essential (hemorrhagic) thrombocythemia; Z80.3 Family history of malignant neoplasm of breast; Z87.891 Personal history of nicotine dependence
CPT/HCPCS: 36415; 80048; 80053; 80202; 81003; 83036; 83605; 84550; 85025; 85652; 86140; 87040; 87070; 87073; 87077; 87186; 87205; 87640; 87641; 93005; 96365; 96367; 96375; 99284; A9270-GY; J0690; J1650; J2250; J2270; J2405; J2543; J2704; J3370; J3490